=== PATIENT | female | born 1980 | race Caucasian/White ===

== ENCOUNTER 2016-10-18 08:24 | Day surgery (SDC) | payer OTHER ==
[2016-10-16 08:25] VITALS: BMI 36.7
[2016-10-18] MEDS ORDERED: Lactated Ringer's 1,000 ML IV ONE ×2 (08:57)
[2016-10-18] MEDS ORDERED: Propofol 10 mg/ml Inj (20 ML) ONE (09:03)
[2016-10-18] MEDS ORDERED: Midazolam 2 MG/2 ML VIAL ONE (09:03)
[2016-10-18] MEDS ORDERED: cefOXitin IV 2 gm in Dextrose 2 GM/50 ML BAG IVPB ONE (09:26)
--- NOTE | 2016-10-18 10:00 | PCM.SURG1 ---
Surgeon's Initial Post Op Note - Surgeon's Notes Surgeon: dr castellon Paint Technician: none Type of Anesthesia: General LMA Anesthesia Administered By: dr peña Pre-Operative Diagnosis: 36 yr with abnormal uterine bleeding r/o polyp Operative Findings: see the op reoprt Post-Operative Diagnosis: same with polyp Operation Performed: myasure/d&c,hysterscopy Specimen/Specimens Removed: ecc. emc. polyp Estimated Blood Loss: EBL {In ML}: 20 Blood Products Given: N/A Drains Used: No Drains Post-Op Condition: Good Date of Surgery/Procedure: 10/18/16 Time of Surgery/Procedure: 10:00
[2016-10-18] MEDS ORDERED: HYDROmorphone 0.5 mg/0.5 ml ISec IVP PRN (10:03)
[2016-10-18] MEDS ORDERED: Lactated Ringer's 1,000 ML IV SCH (10:15)
[2016-10-18 10:26] VITALS: O2SAT 100
[2016-10-18 11:45] VITALS: BP 136/83; PULSE 51; RESP 18; TEMP 97.1
--- NOTE | 2016-10-19 07:27 | OP ---
PROCEDURE DATE: 10/18/2016 PREOPERATIVE DIAGNOSIS: A 36-year-old 5, para 5 with abnormal uterine bleeding, rule out polyps. POSTOPERATIVE DIAGNOSIS: A 36-year-old 5, para 5 with abnormal uterine bleeding, rule out polyps. PROCEDURE PERFORMED: MyoSure dilatation and curettage, hysteroscopy. SURGEON: Dr. Roland Kern. COMPUTER SYSTEMS SECURITY ADMINISTRATOR: None. TYPE OF ANESTHESIA: General. ANESTHESIA ADMINISTERED BY: Dr. Colindres. COMPLICATIONS: None. ESTIMATED BLOOD LOSS: 20 mL. DESCRIPTION OF PROCEDURE: After informed consent was obtained, the patient was brought to the operating room, placed on the table where general anesthesia was given. Once the anesthesia was given, the patient was prepped and draped in the normal sterile fashion. Examination under anesthesia found uterus to be 9-week size, no pelvic or adnexal masses. Cervix was multiparous. After that, the lips of the cervix were grasped with a tenaculum. Gentle dilatation of the cervix was done. Hysteroscope was introduced and found at the lower uterine segment there was a polyp, which was about 1 cm. This lesion was due to MyoSure. MyoSure was used to take down the polyp. Once the MyoSure was done, then the sharp curettage from all the way to the uterus was done. Then *------* was done, it was sent to pathology. Moderate amount of tissue came out. After that the tenaculum was taken out. *------* . The patient tolerated the procedure well. Sponge, needle and instrument count done at the end of the case. Roland Kern MD
== END 2016-10-18 12:15 | disposition home or self-care (01) ==
LOC: C.SDS 08:24
PROVIDERS: ATTEND Obstetrics & Gynecology
DX: N84.1 Polyp of cervix uteri (principal); N92.6 Irregular menstruation, unspecified
CPT/HCPCS: 58558; 88305; J0694; J1170; J2250; J2704; J3010; J7120

== ENCOUNTER 2016-12-15 05:55 | Emergency (ER) | payer OTHER ==
[2016-12-15 06:08] VITALS: O2SAT 100
[2016-12-15] MEDS ORDERED: Sodium Chloride 0.9% 1,000 ML IV ONE (06:19)
--- NOTE | 2016-12-15 06:26 | C.PDOC ---
History Of Present Illness 36 y/o female presents to the ED for evaluation of epigastric abdominal pain which has been gradually worsening since its onset last evening. Patient reports 1 episode of non-bilious vomiting and 3 episodes of watery, nonbloody diarrhea. pain is constant, aching, non-radiating. Otherwise, pt denies fever, chills, recent illness, sore throat, neck pain, shortness of breath, chest pain , dyspnea, hematemesis, melena, back pain, UTI sx, hematuria, dysuria, or history of previous GI disease or abd. surgery. At the time of evaluation, appears in pain. Time Seen by Provider: 12/15/16 06:18 Chief Complaint (Nursing): Abdominal Pain History Per: Patient History/Exam Limitations: no limitations Onset/Duration Of Symptoms: Hrs Current Symptoms Are (Timing): Still Present Location Of Pain/Discomfort: Epigastric Radiation Of Pain To:: None Quality Of Discomfort: "Pain" Associated Symptoms: Vomiting, Diarrhea. denies: Fever, Chills, Urinary Symptoms Additional History Per: Patient Abnormal Vaginal Bleeding: No Past Medical History Reviewed: Historical Data, Nursing Documentation, Vital Signs Vital Signs: Last Vital Signs Temp 98.4 F 12/15/16 06:03 Pulse 62 12/15/16 06:03 Resp 18 12/15/16 06:03 BP 127/90 12/15/16 06:03 Pulse Ox 100 12/15/16 06:56 - Medical History PMH: Hypothyroidism Surgical History: Tonsillectomy Family History: States: Unknown Family Hx - Social History Hx Alcohol Use: No Hx Substance Use: No - Immunization History Hx Tetanus Toxoid Vaccination: No Hx Influenza Vaccination: No Hx Pneumococcal Vaccination: No Review Of Systems Constitutional: Negative for: Fever, Chills Cardiovascular: Negative for: Chest Pain Respiratory: Negative for: Shortness of Breath Gastrointestinal: Positive for: Vomiting, Abdominal Pain (epigastric ), Diarrhea Genitourinary: Negative for: Dysuria, Frequency, Hematuria Physical Exam - Physical Exam Appears: Well, Non-toxic, No Acute Distress Skin: Normal Color, Warm, Dry Eye(s): bilateral: PERRL Nose: No Flaring, No Discharge Oral Mucosa: Moist, No Drooling Tongue: Normal Appearing Lips: Normal Appearing Throat: No Erythema, No Exudate, No Drooling Neck: Supple Cardiovascular: Rhythm Regular, No Murmur, No JVD Respiratory: No Decreased Breath Sounds, No Accessory Muscle Use, No Rales, No Rhonchi, No Stridor, No Wheezing Gastrointestinal/Abdominal: Soft, Tenderness (moderate, epigastric), No Distention, No Guarding, No Rebound Back: No CVA Tenderness Extremity: Normal ROM, No Pedal Edema, Capillary Refill (less than 2 seconds ) Neurological/Psych: Oriented x3, Normal Speech, Normal Cognition Gait: Steady ED Course And Treatment - Laboratory Results Result Diagrams: 12/15/16 06:38 12/15/16 06:38 ECG: Interpreted By Me, Viewed By Me ECG Rhythm: Sinus Rhythm ECG Interpretation: Normal Interpretation Of ECG: Normal Sinus Rhythm at rate 66bpm. Rate From EC O2 Sat by Pulse Oximetry: 100 (on RA) Pulse Ox Interpretation: Normal Progress Note: labs and EKG ordered and reviewed. Patient received Pepcid IVP, Protonix IVP, Zofran IVP and IV Fluids. Disposition - Disposition Referrals: Lisa Velasquez MD [Primary Care Provider] - Disposition Time: 07:00 Condition: STABLE Forms: [facility] ([place]aguan) - Clinical Impression Clinical Impression: Epigastric abdominal pain, Vomiting, Diarrhea - PA / [employer] / Resident Statement MD/DO has reviewed & agrees with the documentation as recorded. - Scribe Statement The provider has reviewed the documentation as recorded by the Scribe (Anay Morales) All medical record entries made by the Scribe were at my direction and personally dictated by me. I have reviewed the chart and agree that the record accurately reflects my personal performance of the history, physical exam, medical decision making, and the department course for this patient. I have also personally directed, reviewed, and agree with the discharge instructions and disposition. Physician Patient Turnover Patient Signed Over To: Nayla Taylor Handoff Comments: Diagnostics, tx, re-eval, dispo
[2016-12-15 06:40] LABS: BASO # 0.1 K/uL (0.0-0.2); BASO % 0.5 % (0.0-2.0); EOS # 0.2 K/uL (0.0-0.7); EOS % 1.3 % (0.0-4.0); LYMPH # 3.5 K/uL (1.0-4.3); LYMPH % 25.9 % (20.0-40.0); MEAN CELL VOLUME 85.7 fL (81.0-99.0); MEAN CORPUSCULAR HEMOGLOBIN 28.9 pg (27.0-31.0); MEAN CORPUSCULAR HGB CONC 33.7 g/dL (33.0-37.0); MEAN PLATELET VOLUME 8.7 fL (7.2-11.7); MONO # 0.6 K/uL (0.0-0.8); MONO % 4.3 % (0.0-10.0); NRBC % 0.1 % (0.0-2.0); RED CELL DISTRIBUTION WIDTH 15.3 % (11.5-14.5); WHITE BLOOD COUNT 13.6 K/uL (4.8-10.8)
[2016-12-15 06:48] LABS: INR 0.9
[2016-12-15 06:53] LABS: ALB/GLOB RATIO 1.4 (1.0-2.1); ALKALINE PHOSPHATASE 51 U/L (38-126); ALT/SGPT 21 U/L (9-52); AST/SGOT 18 U/L (14-36); BILIRUBIN,TOTAL 0.4 mg/dL (0.2-1.3); BLOOD UREA NITROGEN 11 mg/dL (7-17); CALCIUM 8.8 mg/dl (8.6-10.4); CARBON DIOXIDE 22 mmol/L (22-30); CHLORIDE 105 mmol/L (98-107); GFR AFRICAN-AMERICAN > 60; GLUCOSE,RANDOM 116 mg/dL (65-105); POTASSIUM 3.9 mmol/L (3.6-5.2); SODIUM 139 mmol/L (132-148); TOTAL PROTEIN 7.1 g/dL (6.3-8.3)
[2016-12-15 07:08] LABS: RBC URINE 8 /hpf (0-3); URINE BILIRUBIN NEGATIVE (NEGATIVE); URINE BLOOD 1+ (NEGATIVE); URINE CALCIUM OXALATE CRYSTALS MOD /hpf (<OCC); URINE COLOR Yellow (YELLOW); URINE GLUCOSE (UA) NORMAL (Normal); URINE KETONE NEGATIVE (NEGATIVE); URINE LEUKOCYTE ESTERASE NEG Leu/uL (Negative); URINE PROTEIN NEGATIVE (NEGATIVE); URINE UROBILINOGEN NORMAL mg/dL (0.2-1.0); WBC URINE 4 /hpf (0-5)
--- NOTE | 2016-12-15 08:28 | US ---
Right upper quadrant abdominal ultrasound History: Abdominal pain. Comparison: None available. Technique: Real-time sonography was performed through the right upper quadrant of the abdomen. Findings: Liver: Enlarged. Measures 22.2 centimeters. Diffuse increased echogenicity suggestive for fatty infiltration versus hepatic parenchymal disease. Gallbladder appears preserved. No calculi or sludge. Normal wall thickness of 2 millimeters. Negative sonographic Swanson's. Common bile duct measures 4 millimeters, within normal limits. Visualized portions of the pancreas are preserved. Pancreatic tail not well visualized. Visualized aorta and IVC are grossly preserved. Right kidney: 12.9 x 4.5 x 5.7 centimeters. No calculi or hydronephrosis. Impression: Hepatomegaly with diffuse increased echogenicity throughout the hepatic parenchymal cortex suggestive for fatty infiltration versus hepatic parenchymal disease. Clinical correlation. Limited visualization of the pancreas.
[2016-12-15 09:00] VITALS: BP 108/67; PULSE 68; RESP 20; TEMP 97.7
--- NOTE | 2016-12-16 01:32 | CARD ---
APPROVED REPORT EKG Measurement Heart [id number] <Conclusion> Normal sinus rhythm Normal ECG
== END 2016-12-15 09:12 | disposition home or self-care (01) ==
LOC: C.ER 05:55 → SUPCPDRO 05:55 → C.ER 09:12
DX: R10.13 Epigastric pain (principal); K52.9 Noninfective gastroenteritis and colitis, unspecified; E03.9 Hypothyroidism, unspecified
CPT/HCPCS: 76705; 80053; 81001; 83690; 84703; 85025; 85610; 85730; 93005; 96361; 96374; 96375; 99284; C9113; J2405; J7040

== ENCOUNTER 2017-07-26 20:18 | Emergency (ER) | payer OTHER ==
[2017-07-26 20:18] VITALS: BMI 36.7
[2017-07-26 21:05] VITALS: TEMP 98.3
[2017-07-26] MEDS ORDERED: Lactated Ringer's 1,000 ML IVB STA (21:30)
[2017-07-26] MEDS ORDERED: Lactated Ringer's 1,000 ML ONE (21:54)
[2017-07-26 22:01] LABS: BASO # 0.1 K/uL (0.0-0.2); EOS # 0.4 K/uL (0.0-0.7); EOS % 3.3 % (0.0-4.0); HEMOGLOBIN 13.3 g/dL (11.0-16.0); LYMPH # 4.4 K/uL (1.0-4.3); MEAN CELL VOLUME 87.2 fL (81.0-99.0); MEAN CORPUSCULAR HEMOGLOBIN 29.6 pg (27.0-31.0); MEAN CORPUSCULAR HGB CONC 33.9 g/dL (33.0-37.0); MEAN PLATELET VOLUME 8.6 fL (7.2-11.7); MONO # 0.7 K/uL (0.0-0.8); MONO % 5.2 % (0.0-10.0); NEUT % 55.5 % (50.0-75.0); NRBC % 0.1 % (0.0-2.0); RBC 4.48 Mil/uL (3.80-5.20); RED CELL DISTRIBUTION WIDTH 13.3 % (11.5-14.5); WHITE BLOOD COUNT 12.6 K/uL (4.8-10.8)
[2017-07-26 22:14] LABS: ALB/GLOB RATIO 1.2 (1.0-2.1); ALT/SGPT 26 U/L (9-52); AST/SGOT 17 U/L (14-36); BLOOD UREA NITROGEN 12 mg/dL (7-17); CALCIUM 9.1 mg/dl (8.6-10.4); GFR AFRICAN-AMERICAN > 60; GFR NON-AFRICAN AMERICAN > 60
[2017-07-26 23:18] VITALS: BP 119/77; PULSE 66; RESP 19; O2SAT 95
--- NOTE | 2017-07-26 23:40 | C.PDOC ---
Time Seen by Provider: 07/26/17 21:11 Chief Complaint (Nursing): Dizziness/Lightheaded History Per: Patient Onset/Duration Of Symptoms: Days (2) Current Symptoms Are (Timing): Still Present Associated Symptoms Preceding Syncopal Episode: Lightheadedness, Worse With Standing, Other (URI symptoms) Seizure Or Post-ictal Symptoms: None Fall Associated With With Symptoms: No Severity: Moderate Additional History Per: Prior Records - Symptoms Of CVA Recent Head Trauma: No Past Medical History Reviewed: Historical Data, Nursing Documentation, Vital Signs Vital Signs: Last Vital Signs Temp 98.3 F 07/26/17 21:01 Pulse 66 07/26/17 23:17 Resp 19 07/26/17 23:17 BP 119/77 07/26/17 23:17 Pulse Ox 95 07/26/17 23:17 - Medical History PMH: Hypothyroidism Surgical History: Tonsillectomy Family History: States: Unknown Family Hx - Social History Hx Tobacco Use: No Hx Alcohol Use: No Hx Substance Use: No - Immunization History Hx Tetanus Toxoid Vaccination: Yes Hx Influenza Vaccination: Yes Hx Pneumococcal Vaccination: Yes Review Of Systems Except As Marked, All Systems Reviewed And Found Negative. Constitutional: Positive for: Malaise. Negative for: Fever ENT: Positive for: Throat Pain (resolved) Cardiovascular: Negative for: Chest Pain Respiratory: Positive for: Cough. Negative for: Shortness of Breath Gastrointestinal: Positive for: Diarrhea (mild). Negative for: Vomiting, Abdominal Pain, Melena, Hematochezia, Hematemesis Genitourinary: Negative for: Dysuria, Vaginal Bleeding Musculoskeletal: Negative for: Neck Pain, Back Pain Skin: Negative for: Rash Neurological: Negative for: Weakness, Numbness, Seizures, Altered Mental Status , Headache Physical Exam - Physical Exam Appears: Non-toxic, No Acute Distress Skin: Normal Color, Warm, Dry, No Rash Head: Atraumatic, Normacephalic Eye(s): bilateral: Normal Inspection, PERRL, EOMI Oral Mucosa: Moist, No Drooling, No Trismus Throat: Normal Neck: Normal ROM, Supple Lymphatic: No Adenopathy Cardiovascular: Rhythm Regular Respiratory: Normal Breath Sounds, No Accessory Muscle Use Gastrointestinal/Abdominal: Soft, No Tenderness Back: No CVA Tenderness Extremity: Normal ROM, No Pedal Edema, No Calf Tenderness Neurological/Psych: Oriented x3, Normal Speech, Normal Cognition, No Cerebellar Signs, Normal Motor, Normal Sensation ED Course And Treatment - Laboratory Results Result Diagrams: 07/26/17 21:55 07/26/17 21:55 Lab Interpretation: No Acute Changes Urine POC: Negative ECG: Interpreted By Me, Viewed By Me ECG Rhythm: Sinus Rhythm, Nonspecific Changes ECG Interpretation: No Acute Changes Rate From EC O2 Sat by Pulse Oximetry: 95 Pulse Ox Interpretation: Normal Progress - Interventions Interventions:: Observation, Intravenous fluid - Data Reviewed Data Reviewed: Lab, EKG, Old records - Patient Status Patient status: Mostly improved - Continuity of Care Discussed patient case with:: Patient, ED Nurse - Patient Plan Patient Plan: Discharge, F/U with PCP Disposition Counseled Patient/Family Regarding: Studies Performed, Diagnosis, Need For Followup - Disposition Referrals: Lisa Velasquez MD [Staff Provider] - Disposition: HOME/ ROUTINE Disposition Time: 23:41 Condition: STABLE Additional Instructions: Drink plenty of fluids. Follow up with your doctor for further evaluation and treatment. Return to the ER if you pass out, develop vomiting, worsening of symptoms or if you have any other concerns. Instructions: Viral Upper Respiratory Infection, Adult (DC), Dizziness, Nonvertigo, (DC) - Clinical Impression Clinical Impression: URI (upper respiratory infection), Dizziness
--- NOTE | 2017-07-27 22:56 | CARD ---
APPROVED REPORT EKG Measurement Heart [id number] <Conclusion> Normal sinus rhythm Possible Left atrial enlargement Rightward axis Junctional ST depression, probably normal Borderline ECG
== END 2017-07-26 23:56 | disposition home or self-care (01) ==
LOC: C.ER 20:18
DX: R42 Dizziness and giddiness (principal); J06.9 Acute upper respiratory infection, unspecified
CPT/HCPCS: 80053; 84703; 85025; 93005; 99285; J7120

== ENCOUNTER 2017-10-06 07:03 | Emergency (ER) | payer OTHER ==
[2017-10-06 07:11] VITALS: BMI 48.0
[2017-10-06 07:16] VITALS: O2SAT 98
[2017-10-06 08:22] LABS: SQUAMOUS EPITHIAL 1 /hpf (0-5); URINE BILIRUBIN NEGATIVE (NEGATIVE); URINE CLARITY Clear (Clear); URINE COLOR Yellow (YELLOW); URINE GLUCOSE (UA) NORMAL (Normal); URINE LEUKOCYTE ESTERASE NEG Leu/uL (Negative); URINE PROTEIN NEGATIVE (NEGATIVE); URINE UROBILINOGEN NORMAL mg/dL (0.2-1.0)
[2017-10-06 08:23] LABS: URINE BLOOD TRACE (NEGATIVE)
[2017-10-06 09:07] VITALS: BP 120/82; PULSE 60; RESP 20; TEMP 97.4
--- NOTE | 2017-10-06 09:14 | C.PDOC ---
History Of Present Illness 37 year old female presents to ED for evaluation of right lower back pain for the past 2 days. Notes that pain is non-radiating contrary to triage. Pt reports some nausea and urinary frequency since yesterday. Denies fever, chills , vomiting, dysuria, hematuria, bowel/bladder incontinence, extremity weakness, numbness, injury, or trauma. Time Seen by Provider: 10/06/17 07:19 Chief Complaint (Nursing): Back Pain History Per: Patient History/Exam Limitations: no limitations Onset/Duration Of Symptoms: Days Current Symptoms Are (Timing): Still Present Quality Of Discomfort: "Pain" Previous Symptoms: Back Pain Associated Symptoms: None. denies: Incontinence, New Weakness, New Numbness Exacerbating Factor(s): Nothing Recent travel outside of the [place]: No Additional History Per: Patient Past Medical History Reviewed: Historical Data, Nursing Documentation, Vital Signs Vital Signs: Last Vital Signs Temp 97.4 F L 10/06/17 09:07 Pulse 60 10/06/17 09:07 Resp 20 10/06/17 09:07 BP 120/82 10/06/17 09:07 Pulse Ox 98 10/07/17 20:13 - Medical History PMH: Hypothyroidism Denies: Chronic Kidney Disease Surgical History: Tonsillectomy Family History: States: Unknown Family Hx - Social History Hx Tobacco Use: No Hx Alcohol Use: No Hx Substance Use: No - Immunization History Hx Tetanus Toxoid Vaccination: Yes Hx Influenza Vaccination: Yes Hx Pneumococcal Vaccination: Yes Review Of Systems Constitutional: Negative for: Fever, Chills Cardiovascular: Negative for: Chest Pain Respiratory: Negative for: Shortness of Breath Gastrointestinal: Positive for: Nausea. Negative for: Vomiting Genitourinary: Positive for: Frequency. Negative for: Dysuria, Incontinence, Hematuria Musculoskeletal: Positive for: Back Pain. Negative for: Leg Pain Neurological: Negative for: Weakness, Numbness Physical Exam - Physical Exam Appears: Non-toxic, No Acute Distress, Other (obese, uncomfortable with change in position) Skin: Normal Color, Warm, Dry Head: Atraumatic, Normacephalic Eye(s): bilateral: Normal Inspection Oral Mucosa: Moist Neck: Normal ROM, Supple Cardiovascular: Rhythm Regular, No Murmur Respiratory: Normal Breath Sounds, No Rales, No Rhonchi, No Wheezing Gastrointestinal/Abdominal: Soft, No Tenderness Back: No CVA Tenderness, No Vertebral Tenderness, No Paraspinal Tenderness Extremity: Normal ROM, No Tenderness, No Deformity Extremity: Bilateral: Atraumatic Neurological/Psych: Oriented x3, Normal Speech, Normal Cognition, Normal Cranial Nerves, No Cerebellar Signs, Normal Motor, Normal Sensation ED Course And Treatment O2 Sat by Pulse Oximetry: 98 (RA) Pulse Ox Interpretation: Normal Medical Decision Making Medical Decision Making: Plan: Flexeril Toradol Lidoderm Urinalysis ua neg for infection. pt feeling decreased pain after toradol and flexeril., d/ c home Disposition Counseled Patient/Family Regarding: Studies Performed, Diagnosis, Need For Followup, Rx Given - Disposition Referrals: Lisa Velasquez MD [Staff Provider] - Disposition: HOME/ ROUTINE Disposition Time: 09:10 Condition: IMPROVED Additional Instructions: Please avoid heavy lifting. Take medications as prescribed- muscle relaxant make you sleepy. Follow up with Dr Lynn on Sunday. Use warm or cold compresses. Prescriptions: Cyclobenzaprine [Cyclobenzaprine HCl] 10 mg PO Q8 #9 tab Naproxen 500 mg PO BID #20 tab Instructions: Low Back Pain (DC) Forms: [facility] (Bel[place]ian), General Discharge Instructions - Clinical Impression Clinical Impression: Low back strain - PA / [employer] / Resident Statement MD/DO has reviewed & agrees with the documentation as recorded. - Scribe Statement The provider has reviewed the documentation as recorded by the Scribe KP All medical record entries made by the Scribe were at my direction and personally dictated by me. I have reviewed the chart and agree that the record accurately reflects my personal performance of the history, physical exam, medical decision making, and the department course for this patient. I have also personally directed, reviewed, and agree with the discharge instructions and disposition.
[2017-10-06] MEDS ORDERED: Lidocaine 5% Patch TD STA (09:16)
[2017-10-06] MEDS ORDERED: Lidocaine 5% Patch TD ONE (09:30)
== END 2017-10-06 09:35 | disposition home or self-care (01) ==
LOC: C.ER 07:03
DX: S39.012A Strain of muscle, fascia and tendon of lower back, initial encounter (principal); X58.XXXA Exposure to other specified factors, initial encounter; E03.9 Hypothyroidism, unspecified
CPT/HCPCS: 81001; 87086; 96372; 99284; J1885

== ENCOUNTER 2018-04-23 10:53 | Outpatient (CLI) | payer OTHER | END 2018-04-23 10:54 | disposition home or self-care (01) | LOC: C.MRIC 10:53 | DX: M54.5 Low back pain (principal) ==